=== PATIENT | female | born 1990 | race Caucasian/White ===

== ENCOUNTER 2021-02-03 16:27 | Emergency (ER) | payer OTHER ==
[~2021-02-03] VITALS: Ht 162.6 cm; Wt 84.0 kg
--- NOTE | 2021-02-03 18:07 | PHYS DOC ---
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 Patient rates pain 8 out of 10. No treatment prior to arrival. Patient reports that she has a history of modular sponge kidney and has a history of kidney stones. Patient denies hematuria, vomiting, fevers. (EMILIA BHAKTA APRN) Review of Systems: Review of Systems: 14 body systems of the review of systems have been reviewed. See HPI for pertinent positive and negative responses, otherwise all other systems are negative, nonpertinent or noncontributory (EMILIA BHAKTA APRN) Current Medications: Current Meds: Current Medications Medications (Trade) Dose Ordered Sig/Reyna Start Time Stop Time Status Last Admin Dose Admin Fentanyl Citrate (Fentanyl 2ml Vial) 50 mcg 1X ONCE 02/03/21 18:15 02/03/21 18:16 UNV Ondansetron HCl (Zofran) 4 mg 1X ONCE 02/03/21 18:15 02/03/21 18:16 UNV Sodium Chloride 1,000 ml @ 1,000 mls/hr 1X ONCE 02/03/21 18:15 02/03/21 19:14 UNV (EMILIA BHAKTA APRN) Allergies: Allergies: Allergies Coded Allergies Type Severity Reaction Last Updated Verified No Known Drug Allergies 02/03/21 No (EMILIA BHAKTA APRN) Physical Exam: PE: Constitutional: Well developed, well nourished, no acute distress, non-toxic appearance. [] HENT: Normocephalic, atraumatic Eyes: PERRL, EOMI, conjunctiva normal, no discharge. [] Neck: Normal range of motion, no tenderness, supple, no stridor. [] Cardiovascular:Heart rate regular rhythm, no murmur [] Lungs & Thorax: Bilateral breath sounds clear to auscultation [] Abdomen: Bowel sounds normal, soft, bilateral lower abdominal tenderness with palpation, no masses, no pulsatile masses. [] Skin: Warm, dry, no erythema, no rash. [] Back: No tenderness, bilateral CVA tenderness Extremities: No tenderness, no cyanosis, no clubbing, ROM intact, no edema. [] Neurologic: Alert and oriented X 3, normal motor function, normal sensory function, no focal deficits noted. [] Psychologic: Affect normal, judgement normal, mood normal. [] (EMILIA BHAKTA APRN) Current Patient Data: Labs: Laboratory Tests Test 02/03/21 17:35 02/03/21 17:50 Urine Collection Type Unknown Urine Color Yellow Urine Clarity Clear Urine pH 7.0 Urine Specific [place] 1.020 Urine Protein Neg Urine Glucose (UA) Neg mg/dL Urine Ketones (Stick) Neg mg/dL Urine Blood Neg Urine Nitrite Neg Urine Bilirubin Neg Urine Urobilinogen Dipstick 0.2 mg/dL Urine Leukocyte Esterase Neg Urine RBC 0 /HPF Urine WBC Occ /HPF Urine Squamous Epithelial Cells Few /LPF Urine Amorphous Sediment Present /HPF Urine Bacteria Few /HPF Urine Test Negative White Blood Count 14.8 x10^3/uL Red Blood Count 4.78 x10^6/uL Hemoglobin 14.6 g/dL Hematocrit 43.6 % Mean Corpuscular Volume 91 fL Mean Corpuscular Hemoglobin 31 pg Mean Corpuscular Hemoglobin Concent 34 g/dL Red Cell Distribution Width 13.2 % Platelet Count 304 x10^3/uL Neutrophils (%) (Auto) 57 % Lymphocytes (%) (Auto) 35 % Monocytes (%) (Auto) 7 % Eosinophils (%) (Auto) 1 % Basophils (%) (Auto) 1 % Neutrophils # (Auto) 8.4 x10^3uL Lymphocytes # (Auto) 5.2 x10^3/uL Monocytes # (Auto) 1.0 x10^3/uL Eosinophils # (Auto) 0.1 x10^3/uL Basophils # (Auto) 0.1 x10^3/uL Sodium Level 139 mmol/L Potassium Level 3.8 mmol/L Chloride Level 106 mmol/L Carbon Dioxide Level 21 mmol/L Anion Gap 12 Blood Urea Nitrogen 10 mg/dL Creatinine 0.8 mg/dL Estimated GFR (Cockcroft-Gault) 83.7 BUN/Creatinine Ratio 13 Glucose Level 89 mg/dL Calcium Level 8.7 mg/dL Total Bilirubin 0.2 mg/dL Aspartate Amino Transf (AST/SGOT) 17 U/L Alanine Aminotransferase (ALT/SGPT) 31 U/L Alkaline Phosphatase 69 U/L Total Protein 7.6 g/dL Albumin 3.9 g/dL Albumin/Globulin Ratio 1.1 Current Medications Medications (Trade) Dose Ordered Sig/Reyna Route PRN Reason Start Time Stop Time Status Last Admin Dose Admin Sodium Chloride 1,000 ml @ 1,000 mls/hr 1X ONCE IV 02/03/21 18:15 02/03/21 19:14 DC 02/03/21 18:21 Ondansetron HCl (Zofran) 4 mg 1X ONCE IVP 02/03/21 18:15 02/03/21 18:16 DC 02/03/21 18:19 Fentanyl Citrate (Fentanyl 2ml Vial) 50 mcg 1X ONCE IVP 02/03/21 18:15 02/03/21 18:16 DC 02/03/21 18:20 Vital Signs: Vital Signs Date Time Temp Pulse Resp B/P (MAP) Pulse Ox O2 Delivery O2 Flow Rate FiO2 02/03/21 16:45 97.5 80 16 119/73 97 Room Air (EMILIA BHAKTA APRN) EKG: EKG: [] (EMILIA BHAKTA APRN) Radiology/Procedures: Radiology/Procedures: PROCEDURE: CT ABDOMEN PELVIS WO CONTRAST CT abdomen pelvis without contrast dated 02/03/2021. No comparison available. Clinical data indication: Bilateral flank pain nausea. TECHNIQUE: Contiguous axial imaging of the abdomen pelvis performed without the administration of IV or oral contrast. One or more of the following individualized dose reduction techniques were utilized for this examination: 1. Automated exposure control 2. Adjustment of the mA and/or kV according to patient size 3. Use of iterative reconstruction technique FINDINGS: Limited images of lung bases are clear. Heart size is within normal limits. No pleural or pericardial effusion. Solid abdominal viscera not well evaluated in the absence of contrast material. No apparent attenuation abnormality of the liver or spleen. Pancreas, adrenal glands, gallbladder unremarkable. There is a 3 mm calcific stone at the upper pole left kidney. There are couple smaller punctate calcific stones at the lower pole left kidney. No ureteral stone or hydronephrosis. There is a tiny calcific stone at the lower pole right kidney. Unopacified GI tract normal in caliber and contour. No bowel wall thickening. No inflammatory stranding in the mesentery. Appendix normal in caliber. No ascites or lymphadenopathy. Abdominal aorta normal in caliber. Images of pelvis show nondistended urinary bladder. No calcific bladder stone. Uterus and adnexa are unremarkable. No significant free fluid or pelvic lymphadenopathy. Bone windows show no acute findings. Mild lower lumbar spondylosis. IMPRESSION: 1. Bilateral nephrolithiasis, nonobstructive. 2. Normal appendix. 3. No acute findings. Electronically signed by: Ramy Valladares MD (02/03/2021 7:07 PM) [facility] [place] SIGNED BY: RAMY VALLADARES MD DATE: 02/03/211903 CC: EMILIA BHAKTA APRN; RUDOLPH KITCHEN ~MTH0 0[] (EMILIA BHAKTA APRN) Heart Score: C/O Chest Pain: No Risk Factors: Risk Factors: DM, Current or recent (<one month) smoker, HTN, HLP, family history of CAD, obesity. Risk Scores: Score 0 - 3: 2.5% MACE over next 6 weeks - Discharge Home Score 4 - 6: 20.3% MACE over next 6 weeks - Admit for Clinical Observation Score 7 - 10: 72.7% MACE over next 6 weeks - Early Invasive Strategies (EMILIA BHAKTA APRN) Course & Med Decision Making: Course & Med Decision Making Pertinent Labs and Imaging studies reviewed. (See chart for details) Patient is a 31-year-old female being seen in the ER for bilateral flank pain that radiates into her lower abdomen that started this afternoon. Patient has a positive history of kidney stones. Work-up in the ER consisted of blood work, urinalysis, and CT scan of abdomen. Patient was treated in the ER with fluids, nausea medication, and pain medication. Leukocytosis noted. CMP unremarkable. CT scan showed a 3 mm stone in the left upper pole of the kidney. There was no ureter stone in it was nonobstructing. Her vital signs are stable and she is afebrile. Patient given a dose of an antibiotic in the ER and discharged home with a prescription for antibiotic. Patient also discharged home with Flomax and pain medication. Patient advised to follow-up with her urologist. I discussed with patient all findings and diagnostic testing as well as the need to follow-up with PCP for further evaluation and treatment or return to the ER if any new or worsening symptoms. Strict return precautions were also discussed at length. Patient voiced understanding and agreement with the plan. Patient is hemodynamically stable at the time of disposition. (EMILIA BHAKTA APRN) Course & Med Decision Making Did not see or evaluate patient. Agree with [employer] CLERK's work-up and disposition per note. (OSMIN MAY MD) Dragon Disclaimer: Dragon Disclaimer: This electronic medical record was generated, in whole or in part, using a voice recognition dictation system. (EMILIA BHAKTA APRN) Departure Departure: Impression: Primary Impression: Kidney stone Disposition: HOME / SELF CARE / HOMELESS Condition: GOOD Referrals: RUDOLPH KITCHEN (PCP) Patient Instructions: Kidney Stones Additional Instructions: You are seen in the ER today for bilateral flank pain. You were noted to have a 3 mm stone in the upper pole of your left kidney. You are being discharged home with pain medication, Flomax, and an antibiotic. You were given your first dose of antibiotic in the ER today. For mild pain you can take ibuprofen. For severe pain you are being discharged home with a prescription for [place]. This medication is Tylenol and hydrocodone and a combination tablet. Medication may cause drowsiness and do not take need to be alert and do not take with alcohol. Please follow-up with your urologist as soon as possible. If you develop fevers refractory to treatment, increase in your pain, intractable nausea/vomiting, blood in your urine please return to the ER. EMERGENCY DEPARTMENT GENERAL DISCHARGE INSTRUCTIONS Thank you for coming to [facility] (ED) today and trusting us with you care. We trust that you had a positivie experience in our Emergency Department. If you wish to speak to the department management, you may call the director at [phone]. YOUR FOLLOW UP INSTRUCTIONS ARE FOLLOWS: 1. Do you have a private Doctor? If you do not have a private doctor, please ask for a resource list of physicians or clinics that may be able to assist you with follow up care. 2. The Emergency Physician has interpreted your x-rays. The X-Ray specialist will also review them. If there is a change in the findings, you will be notified in 48 hours when at all possible. 3. A lab test or culture has been done, your results will be reviewed and you will be notified if you need a change in treatment. ADDITIONAL INSTRUCTIONS AND INFORMATION: 1. Your care today has been supervised by a physician who is specially trained in emergency care. Many problems require more than one evaluation for a complete diagnosis and treatment. We recommend that you schedule your follow up appointment as recom mended to ensure complete treatment of you illness or injury. If you are unable to obtain follow up care and continue to have a problem, or if your condition worsens, we recommend that you return to the ED. 2. We are not able to safely determine your condition over the phone nor are we able to give sound medical advice over the phone. For these safety reasons, if you call for medical advice we will ask you to come to the ED for further evaluation. 3. If you have any questions regarding these discharge instructions please call the ED at [phone]. SAFETY INFORMATION: In the interest of safety, wellness, and injury prevention; we encourage you to wear your sealbelt, if you smoke; quite smoking, and we encourage family to use a protective helmet for bicycling and other sporting events that present an increased risk for head injury. IF YOUR SYMPTOMS WORSEN OR NEW SYMPTOMS DEVELOP, OR YOU HAVE CONCERNS ABOUT YOUR CONDITION; OR IF YOUR CONDITION WORSENS WHILE YOU ARE WAITING FOR YOUR FOLLOW UP APPOINTMENT; EITHER CONTACT YOUR PRIMARY CARE DOCTOR, THE PHYSICIAN WHOSE NAME AND NUMBER YOU WERE GIVEN, OR RETURN TO THE ED IMMEDIATELY. Scripts Cephalexin (CEPHALEXIN) 500 Mg Tablet 1 TAB PO QID for uti for 7 Days, #28 TAB 0 Refills Prov: EMILIA BHAKTA APRN 02/03/21 Tamsulosin Hcl (FLOMAX) 0.4 Mg Cap.er.24h 1 CAP PO QHS for kidney stone for 14 Days, #14 CAP 0 Refills Prov: EMILIA BHAKTA APRN 02/03/21 Hydrocodone Bit/Acetaminophen (HYDROCODONE-APAP 5-325 ) 1 Each Tablet 1 TAB PO PRN Q6HRS PRN for PAIN for 2 Days, #8 TAB 0 Refills Prov: EMILIA BHAKTA APRN 02/03/21 EMILIA BHAKTA APRN Feb 03, 2021 18:07 OSMIN MAY MD Feb 04, 2021 00:50
[2021-02-03] MEDS ORDERED: IV NORMAL SALINE 1,000ML 1,000 ML IV ONE (18:15)
[2021-02-03] MEDS ORDERED: ONDANSETRON PF 4 MG/2 ML VIAL. IVP ONE (18:15)
[2021-02-03 18:17] LABS: AMORPHOUS SEDIMENT,UR PRESENT /HPF; BACTERIA,URINE FEW /HPF (0-FEW); BILIRUBIN,URINE NEG (NEG); CLARITY,URINE CLEAR; COLOR,URINE YELLOW; GLUCOSE,URINE NEG (NEG); NITRITE,URINE NEG (NEG); RBC,URINE 0 /HPF (0-2); SQUAMOUS EPITHELIAL CELL,UR FEW /LPF; UROBILINOGEN,URINE 0.2 mg/dL (0.2 mg/dL); WBC,URINE OCC /HPF (0-4)
[2021-02-03 18:17] LABS: BASO # 0.1 x10^3/uL (0.0-0.2); BASO % 1 % (0-3); EOS # 0.1 x10^3/uL (0.0-0.7); EOS % 1 % (0-3); HEMATOCRIT 43.6 % (36.0-47.0); HEMOGLOBIN 14.6 g/dL (12.0-15.5); LYMPH # 5.2 x10^3/uL (1.0-4.8); LYMPH % 35 % (24-48); MEAN CORPUSCULAR HEMOGLOBIN 31 pg (25-35); MEAN CORPUSCULAR HGB CONC 34 g/dL (31-37); MEAN CORPUSCULAR VOLUME 91 fL (79-100); MONO % 7 % (0-9); NEUT # 8.4 x10^3uL (1.8-7.7); NEUT % 57 % (31-73); PLATELET COUNT 304 x10^3/uL (140-400); RED BLOOD COUNT 4.78 x10^6/uL (3.50-5.40); RED CELL DISTRIBUTION WIDTH 13.2 % (11.5-14.5); WHITE BLOOD COUNT 14.8 x10^3/uL (4.0-11.0)
[2021-02-03 18:27] LABS: CALCIUM 8.7 mg/dL (8.5-10.1); CREATININE 0.8 mg/dL (0.6-1.0); GFR 83.7; POTASSIUM 3.8 mmol/L (3.5-5.1)
[2021-02-03 18:32] LABS: ALBUMIN 3.9 g/dL (3.4-5.0); ALBUMIN/GLOBULIN RATIO 1.1 (1.0-1.7); TOTAL BILIRUBIN 0.2 mg/dL (0.2-1.0); TOTAL PROTEIN 7.6 g/dL (6.4-8.2)
[2021-02-03 18:51] LABS: U PREG PATIENT NEGATIVE (NEG)
--- NOTE | 2021-02-03 19:10 | RAD ---
CT abdomen pelvis without contrast dated 02/03/2021. No comparison available. Clinical data indication: Bilateral flank pain nausea. TECHNIQUE: Contiguous axial imaging of the abdomen pelvis performed without the administration of IV or oral con trast. One or more of the following individualized dose reduction techniques were utilized for this examinat ion: 1. Automated exposure control 2. Adjustment of the mA and/or kV according to patient size 3. Use of iterative reconstruction technique FINDINGS: Limited images of lung bases are clear. Heart size is within normal limits. No pleural or pericardial effusion. Solid abdominal viscera not well evaluated in the absence of contrast material. No apparent attenuati on abnormality of the liver or spleen. Pancreas, adrenal glands, gallbladder unremarkable. There is a 3 mm calcific stone at the upper pole left kidney. There are couple smaller punctate calci fic stones at the lower pole left kidney. No ureteral stone or hydronephrosis. There is a tiny calcif ic stone at the lower pole right kidney. Unopacified GI tract normal in caliber and contour. No bowel wall thickening. No inflammatory strandi ng in the mesentery. Appendix normal in caliber. No ascites or lymphadenopathy. Abdominal aorta christo l in caliber. Images of pelvis show nondistended urinary bladder. No calcific bladder stone. Uterus and adnexa are unremarkable. No significant free fluid or pelvic lymphadenopathy. Bone windows show no acute findings. Mild lower lumbar spondylosis. IMPRESSION: 1. Bilateral nephrolithiasis, nonobstructive. 2. Normal appendix. 3. No acute findings. Electronically signed by: Ramy Valladares MD (02/03/2021 7:07 PM) [facility]
[2021-02-03] MEDS ORDERED: cefTRIAXone SODIUM 1 GM VIAL ONE (20:32)
[2021-02-03] MEDS ORDERED: IV NORMAL SALINE 50ML 50 ML ONE (20:32)
[2021-02-03] MEDS ORDERED: HYDR-2155 PO (20:57)
[2021-02-03] MEDS ORDERED: CEPH500T PO (20:57)
[2021-02-03] MEDS ORDERED: TAMS0.4C97 PO (20:57)
[2021-02-03 21:12] VITALS: BP 120/86
== END 2021-02-03 21:16 | disposition home or self-care (01) ==
LOC: ER 16:27
DX: N20.0 Calculus of kidney (principal); Z87.442 Personal history of urinary calculi
CPT/HCPCS: 36415; 74176; 80053; 81001; 81025; 85025; 96361; 96365; 96375; 99285; J0696; J2405; J3010; J7030